=== PATIENT | female | born 1955 | race Caucasian/White ===

== ENCOUNTER 2023-10-17 10:13 | Emergency (ER) | payer OTHER, SELFPAY ==
[2023-10-17 10:23] VITALS: BP 148/88; PULSE 87; RESP 16; TEMP 36.1; O2SAT 98; BMI 34.7
--- NOTE | 2023-10-17 10:30 | DI.RAD.S_ITS ---
PROCEDURE: XR KNEE RT 1TO2V INDICATIONS: fall TECHNIQUE: 2 views of the knee were acquired. COMPARISON: None. FINDINGS: Bones: There is a comminuted fracture of the patella. Intact appearing knee arthroplasty hardware is seen. Soft tissues: Significant soft tissue swelling is seen. Soft tissue gas is seen. IMPRESSION: There is an open, comminuted fracture of the patella, with soft tissue gas. Dictated by: Vivek Kruger M.D. on 10/17/2023 at 10:00 Approved by: Vivek Kruger M.D. on 10/17/2023 at 10:01
--- NOTE | 2023-10-17 10:59 | ED.LOWEXIN ---
HPI - Extremity Injury (Lower) General Chief Complaint: Extremity Injury, Lower Stated Complaint: split knee open bleeding alot Time Seen by Provider: 10/17/23 10:23 Source: patient Mode of arrival: Ambulatory History of Present Illness HPI Narrative: 68-year-old female presents for right knee injury and swelling. She was walking when she stepped into a divot and fell forward, striking her knee against concrete. Reports remote history of right knee replacement and is concerned that hardware may be loosened. Related Data Home Medications Medication Instructions Recorded Confirmed atorvastatin 40 mg tablet (Lipitor) 40 mg PO DAILY 10/17/23 10/17/23 levothyroxine 75 mcg tablet 100 mcg PO DAILY 10/17/23 10/17/23 losartan 100 mg tablet 100 mg PO DAILY 10/17/23 10/17/23 losartan 100 mg tablet (Cozaar) 100 mg PO DAILY 10/17/23 10/17/23 metformin 1,000 mg tablet 1,000 mg PO DAILY 10/17/23 10/17/23 Previous Rx's Medication Instructions Recorded cephalexin 500 mg capsule 500 mg PO QID #40 caps 10/17/23 cephalexin 500 mg capsule 500 mg PO QID #40 caps 10/17/23 ondansetron 4 mg disintegrating 4 mg PO Q8H #30 tabs 10/17/23 tablet ondansetron 4 mg disintegrating 4 mg PO Q8H PRN nausea and 10/17/23 tablet vomiting #30 tabs oxycodone-acetaminophen 5 mg-325 1 tab PO TID PRN pain #12 tabs 10/17/23 mg tablet oxycodone-acetaminophen 5 mg-325 1 tab PO TID PRN pain #14 tabs 10/17/23 mg tablet Allergies Allergy/AdvReac Type Severity Reaction Status Date / Time codeine Allergy Hives Verified 10/17/23 10:26 Patient History Social History Smoking Status: Never smoker Smoking Status: Never smoker alcohol intake frequency: holidays/special occasions only Substance Use Type: does not use Exam Initial Vital Signs Initial Vital Signs: Vital Signs Temperature 97 F L 10/17/23 10:23 Pulse Rate 87 10/17/23 10:23 Respiratory Rate 16 10/17/23 10:23 Blood Pressure 148/88 H 10/17/23 10:23 Pulse Oximetry 98 10/17/23 10:23 Oxygen Delivery Method Room Air 10/17/23 10:23 Const: Awake, alert, no acute distress, nontoxic appearing MSK: Right knee swelling, painful range of motion Skin: 2 cm horizontal laceration over patella with active venous oozing Neuro: AO x3, CN II-XII grossly intact, moves all extremities Procedures Laceration Repair Laceration 1: Site: lower extremity Side (If applicable): right Size (cm): 2 Description: linear Depth: simple, single layer Local Anesthetic: lidocaine 1% and with epi Amount of anesthesia used (mL): 5 Pre-repair: wound explored and irrigated extensively Skin layer closed with: nylon Skin layer suture size: 4-0 Number of sutures: 3 Technique: horizontal mattress Course Orders Ordered: Discontinued Medications Cefazolin Sodium/Dextrose (Ancef) 100 mls @ 200 mls/hr IV NOW ONE Stop: 10/17/23 12:11 Last Admin: 10/17/23 12:07 Dose: 200 mls/hr Documented By: EMERSON Oxycodone HCl (Oxycodone Ir 5 Mg Tablet) 5 mg PO NOW ONE Stop: 10/17/23 10:58 Last Admin: 10/17/23 11:04 Dose: 5 mg Documented By: EMERSON Vital Signs Vital signs: Vital Signs - 8 hr 10/17/23 10:23 10/17/23 11:53 10/17/23 11:55 Temperature 97 F L Pulse Rate 87 81 78 Respiratory Rate 16 Blood Pressure 148/88 H Pulse Oximetry 98 97 97 Oxygen Delivery Method Room Air 10/17/23 11:55 Temperature Pulse Rate Respiratory Rate Blood Pressure 177/78 H Pulse Oximetry Oxygen Delivery Method MDM - Extremity Injury (Lower) Differential Diagnosis Differential diagnosis: Likely acute internal derangement of knee, fracture of femur and fracture of hip Imaging Data Extremity x-ray #1: My Impression: PROCEDURE: XR KNEE RT 1TO2V INDICATIONS: fall TECHNIQUE: 2 views of the knee were acquired. COMPARISON: None. FINDINGS: Bones: There is a comminuted fracture of the patella. Intact appearing knee arthroplasty hardware is seen. Soft tissues: Significant soft tissue swelling is seen. Soft tissue gas is seen. IMPRESSION: There is an open, comminuted fracture of the patella, with soft tissue gas. Dictated by: Vivek Kruger M.D. on 10/17/2023 at 10:00 Approved by: Vivek Kruger M.D. on 10/17/2023 at 10:01 [facility] Narrative Medical decision making narrative: Ground level trip and fall with knee injury. Wound copiously irrigated with Betadine and normal saline. X-ray show open patella fracture. Discussed case with on-call orthopedics Dr. Villegas, who recommended IV Ancef x1 and wound could be approximated, placed in knee immobilizer, and followed up in clinic. Patient was from [place] in established with [place]. She states that she has a surgeon that she can contact in her hometown of [place] for follow up. Wound repaired per procedure note. She was subsequently placed in knee immobilizer and given crutches for ambulatory support. Pain medications, antibiotics, nausea medication sent to pharmacy of choice. Discharge Plan Departure Patient Disposition: Home Clinical Impression: Laceration of knee Fracture, patella, open Qualifiers: Encounter type: initial encounter Laterality: right Instructions: DI for Laceration Repair -- Simple, DI for Open Fracture Activity Restrictions/Additional Instructions: Wear the knee immobilizer when walking around. Elevate the extremity above heart level and apply ice liberally to areas of swelling. Make sure to take all of your antibiotics as prescribed. Pain and nausea medications have also been sent to the [facility] in [place]. Make sure to follow up with your orthopedic surgeon. Sutures will need to be removed in 7-10 days Prescriptions: New cephalexin 500 mg capsule 500 mg PO QID Qty: 40 0RF oxycodone-acetaminophen 5-325 mg tablet 1 tab PO TID PRN (Reason: pain) Qty: 12 0RF ondansetron 4 mg tablet,disintegrating 4 mg PO Q8H PRN (Reason: nausea and vomiting) Qty: 30 0RF ondansetron 4 mg tablet,disintegrating 4 mg PO Q8H Qty: 30 0RF cephalexin 500 mg capsule 500 mg PO QID Qty: 40 0RF oxycodone-acetaminophen 5-325 mg tablet 1 tab PO TID PRN (Reason: pain) Qty: 14 0RF No Action levothyroxine 75 mcg Tablet 100 mcg PO DAILY atorvastatin [Lipitor] 40 mg Tablet 40 mg PO DAILY metformin 1,000 mg Tablet 1,000 mg PO DAILY losartan 100 mg Tablet 100 mg PO DAILY losartan [Cozaar] 100 mg Tablet 100 mg PO DAILY Stand Alone Forms: Patient Portal/API
[2023-10-17] MEDS: OXYCODONE IR 5 MG TABLET PO (11:04)
[2023-10-17 11:53] VITALS: PULSE 81; O2SAT 97
[2023-10-17 11:55] VITALS: BP 177/78; PULSE 78; O2SAT 97
[2023-10-17] MEDS: CEFAZOLIN 2 GM/100 ML PREMIX 100 ML IV (12:07)
--- NOTE | 2023-10-27 13:05 | PC.NURSE ---
late entry - per RN IV fluid was discontinues and IV site was discontinued prior to discharge.
== END 2023-10-17 12:43 | disposition home or self-care (01) ==
PROVIDERS: Emergency Provider Emergency Medicine
DX: S81.011A Laceration without foreign body, right knee, initial encounter (principal); S82.001A Unspecified fracture of right patella, initial encounter for closed fracture; W18.30XA Fall on same level, unspecified, initial encounter
CPT/HCPCS: 12001; 73560; 96365; 99284; J0690